=== PATIENT | female | born 1985 | race Hispanic/Latino ===

== ENCOUNTER 2023-01-12 08:17 | Emergency (ER) | payer OTHER ==
[~2023-01-12] VITALS: Ht 162.6 cm; Wt 74.8 kg
[2023-01-12 08:24] VITALS: PULSE 89
[2023-01-12 08:57] LABS: RAPID GROUP A STREP negative (NEGATIVE)
[2023-01-12 08:59] LABS: SARS-CoV-2, RNA, NAAT NEGATIVE SARS CoV-2 (NEGATIVE)
[2023-01-12 09:04] LABS: INFLUENZA TYPE B Negative For Type B (NEGATIVE)
[2023-01-12 10:57] LABS: BASOPHILS # (AUTO) 0.01 K/uL (0.00-0.20); BASOPHILS % (AUTO) 0.2 % (0.0-5.0); HEMATOCRIT 31.8 % (36-48); IMMATURE GRANULOCYTE ABSOLUTE 0.03 K/uL (0-1); LYMPHOCYTES # (AUTO) 0.5 K/uL (1.0-4.8); LYMPHOCYTES % (AUTO) 7.9 % (21.0-51.0); MEAN CORPUSCULAR HEMOGLOBIN 25.4 pg (27.0-33.0); MEAN CORPUSCULAR HGB CONC 31.1 g/dL (32.0-36.0); MEAN CORPUSCULAR VOLUME 81.5 fL (79-99); MONOCYTES # (AUTO) 0.4 K/uL (0.1-1.0); MONOCYTES % (AUTO) 5.5 % (3.0-13.0); NEUTROPHILS # (AUTO) 5.5 K/uL (1.8-7.7); NEUTROPHILS % (AUTO) 85.9 % (40.0-77.0); PLATELET COUNT (AUTO) 288 K/uL (130-400); RED CELL DISTRIBUTION WIDTH 14.9 % (11.0-15.5); WHITE BLOOD COUNT (AUTO) 6.4 K/uL (4.8-10.8)
[2023-01-12 11:10] LABS: APPEARANCE,URINE CLEAR (CLEAR); BILIRUBIN,URINE NEGATIVE (NEGATIVE); COLOR,URINE LIGHT-YELLOW (YELLOW); GLUCOSE, URINE (UA) NEGATIVE (NEGATIVE); KETONES,URINE NEGATIVE (NEGATIVE); LEUKOCYTE ESTERASE ,URINE 25 Leu/uL (NEGATIVE); NITRATE,URINE NEGATIVE (NEGATIVE); PH,URINE 7.5 (5.0-8.0); PROTEIN,URINE NEGATIVE (NEGATIVE); UROBILINOGEN,URINE 0.2 mg/dL (0.2-1.0)
[2023-01-12 11:12] LABS: CREATININE 0.7 mg/dL (0.5-1.5); POTASSIUM 3.9 mmol/L (3.5-5.1)
[2023-01-12 11:13] LABS: ADD UA MICROSCOPIC YES
[2023-01-12 11:16] LABS: BILIRUBIN,TOTAL 0.2 mg/dL (0.2-1.0); MUCUS,URINE RARE LPF (None Seen); SQUAMOUS EPITHELIAL CELL,UR FEW /HPF (0-2); TOTAL PROTEIN, SERUM 7.8 g/dL (6.0-8.3)
[2023-01-12 11:17] LABS: ALBUMIN 3.7 g/dL (3.5-5.0)
[2023-01-12 12:10] LABS: INFLUENZA TYPE A Positive For Type A (NEGATIVE)
[2023-01-12] MEDS ORDERED: LIDOCAINE HCL 1% 20 ML VIAL ONE (12:19)
[2023-01-12] MEDS ORDERED: CEPH500T PO (12:24)
[2023-01-12] MEDS ORDERED: GUAI5LIQ13 PO (12:24)
[2023-01-12] MEDS ORDERED: CEFTRIAXONE 1G VIAL IM ONE (12:30)
[2023-01-12 12:31] VITALS: BP 126/78; RESP 16; O2SAT 99
[2023-01-12] MEDS ORDERED: ACETAMINOPHEN 325 MG TAB ONE (12:34)
[2023-01-12 12:39] VITALS: TEMP 101.1
[2023-01-12] MEDS ORDERED: ACETAMINOPHEN 325 MG TAB PO ONE (13:00)
== END 2023-01-12 12:42 | disposition home or self-care (01) ==
LOC: EDH 08:17
DX: N39.0 Urinary tract infection, site not specified (principal); R50.9 Fever, unspecified; Z98.890 Other specified postprocedural states
CPT/HCPCS: 99284; 71045; 87635; 80053; 85025; 87040 ×2; 87880; 87804 ×2; 83605; 81001; 36415; 96372; C9803; J0696